=== PATIENT | female | born 1960 | race Caucasian/White ===

== ENCOUNTER 2021-06-22 12:57 | Emergency (ER) | payer SELFPAY ==
--- NOTE | 2021-06-22 13:10 | ED Physician Documentation ---
PD HPI BACK PAIN - Stated complaint Stated Complaint: BACK PX - Chief complaint Chief Complaint: Abd Pain - History obtained from History obtained from: Patient - History of Present Illness Timing - onset: How many days ago (4) Timing - duration: Days (4) Timing - details: Gradual onset, Still present (more consistent and severe the past day.) Location: Lower, Left Quality: Pain, Aching Associated symptoms: No: Fever, Weakness, Numbness, Hematuria Improves with: Rest Worsened by: Movement, Palpation (left lower abd) Contributing factors: No: Lifting, Twisting, Trauma Similar symptoms before: Has not had sx before Recently seen: Not recently seen Review of Systems Constitutional: denies: Fever, Chills Nose: denies: Rhinorrhea / runny nose, Congestion Throat: denies: Sore throat Cardiac: denies: Chest pain / pressure, Palpitations Respiratory: denies: Dyspnea, Cough GI: reports: Abdominal Pain, Nausea. denies: Vomiting, Diarrhea : denies: Dysuria, Frequency Skin: denies: Rash Neurologic: denies: Focal weakness, Numbness, Near syncope PD PAST MEDICAL HISTORY - Past Medical History Cardiovascular: None Respiratory: None Endocrine/Autoimmune: None GI: None - Present Medications Home Medications: Ambulatory Orders Medication Instructions Recorded Confirmed Naproxen 250 mg PO TID 7 Days #20 tablet 06/22/21 Ondansetron Odt [Zofran] 4 mg TL Q6H PRN #10 tablet 06/22/21 Oxycodone HCl/Acetaminophen 1 each PO Q6H PRN #14 tablet 06/22/21 [Percocet 5-325 mg Tablet] cephALEXin [Keflex] 500 mg PO TID 5 Days #15 cap 06/22/21 metroNIDAZOLE [Flagyl] 250 mg PO TID 5 Days #15 tablet 06/22/21 - Allergies Allergies/Adverse Reactions: Allergies Allergy/AdvReac Type Severity Reaction Status Date / Time codeine Allergy Respiratory Verified 06/22/21 13:02 erythromycin base Allergy Headache Verified 06/22/21 13:02 epinephrine AdvReac Anxiety Verified 06/22/21 13:02 PD ED PE NORMAL - Vitals Vital signs reviewed: Yes - General General: Alert and oriented X 3, Well developed/nourished, Other (appears moderately uncomfortable but not having guarded ROM of the trunk. ) - Neck Neck: Supple, no meningeal sign, No adenopathy - Cardiac Cardiac: RRR, No murmur - Respiratory Respiratory: Clear bilaterally - Abdomen Abdomen: Normal bowel sounds, Soft, Non distended, No organomegaly, Other (tender left lower abd with mild local guarding but no percussion nor rebounds tenderness. No noted hernia, rash, nor skin process. ) Results - Vitals Vitals: Vital Signs - 24 hr 06/22/21 06/22/21 06/22/21 13:02 13:20 16:13 Temperature 36.6 C 36.7 C Heart Rate 76 71 Respiratory 19 20 16 Rate Blood Pressure 169/90 H 168/80 H O2 Saturation 99 97 Oxygen O2 Source Room air - Labs Labs: Laboratory Tests 06/22/21 06/22/21 06/22/21 13:45 13:45 13:45 WBC 15.0 H RBC 5.65 H Hgb 17.0 H Hct 50.2 H MCV 88.8 MCH 30.1 MCHC 33.9 RDW 13.3 Plt Count 245 MPV 12.3 H Neut # (Auto) 10.4 H Lymph # (Auto) 3.3 [place] # (Auto) 0.9 Eos # (Auto) 0.2 Baso # (Auto) 0.1 Absolute Nucleated RBC 0.00 Nucleated RBC % 0.0 Sodium 139 Potassium 3.7 Chloride 106 Carbon Dioxide 19 L Anion Gap 14.0 H BUN 10 Creatinine 0.7 Estimated GFR (MDRD) 85 L Glucose 96 Calcium 9.1 Total Bilirubin 1.2 H AST 29 ALT 19 Alkaline Phosphatase 58 Total Protein 7.2 Albumin 4.0 Globulin 3.2 Albumin/Globulin Ratio 1.3 Lipase 27 Urine Color DARK YELLOW Urine Clarity CLEAR Urine pH 5.5 Ur Specific [place] >=1.030 H Urine Protein NEGATIVE Urine Glucose (UA) NEGATIVE Urine Ketones TRACE Urine Occult Blood NEGATIVE Urine Nitrite NEGATIVE Urine Bilirubin NEGATIVE Urine Urobilinogen 0.2 (NORMAL) Ur Leukocyte Esterase NEGATIVE Ur Microscopic Review NOT INDICATED Urine Culture Comments NOT INDICATED PD MEDICAL DECISION MAKING - ED course Complexity details: reviewed results (acute diverticulitis without perforation nor abscess. ), re-evaluated patient (improved with meds in ER, but still hurting just a little. Nonperitoneal abd exam still. ), considered differential, d/w patient Departure - Departure Disposition: 01 Home, Self Care Clinical Impression: Sigmoid diverticulitis Low back pain Qualifiers: Chronicity: acute Back pain laterality: unspecified Sciatica presence: without sciatica Qualified Code(s): M54.50 - Low back pain, unspecified Condition: Stable Record reviewed to determine appropriate education?: Yes Instructions: ED Diverticulitis Prescriptions: metroNIDAZOLE [Flagyl] 250 mg PO TID 5 Days #15 tablet cephALEXin [Keflex] 500 mg PO TID 5 Days #15 cap Naproxen 250 mg PO TID 7 Days #20 tablet Oxycodone HCl/Acetaminophen [Percocet 5-325 mg Tablet] 1 each PO Q6H PRN #14 tablet PRN Reason: pain Ondansetron Odt [Zofran] 4 mg TL Q6H PRN #10 tablet PRN Reason: Nausea / Vomiting Comments: CT scan shows acute sigmoid diverticulitis without any signs of abscess or perforation. Your white count is elevated suggesting an infectious as well as inflammatory process of it. Stay well-hydrated. Regular diet is okay. Use naproxen anti-inflammatory 3 times a day with food for the next 5 to 7 days for inflammation. Also cephalexin and metronidazole antibiotics 3 times daily for the next 5 days. Add Tylenol every 4-6 hours if needed for pain or Percocet if needed for worse pain. The intention of this would be short-term. Ondansetron if needed for nausea. I transmitted your [facility] in [place] as this is the only one that will be open at this time toward the [facility]. Recheck if not improving well over the next 3 to 5 days and resolved in that timeframe. Return if worsening. I am prescribing a short course of narcotic pain medication for you. These are potentially dangerous and addictive medications that should be used carefully. These medications may constipate you. Take an [id number] stool softener such as docusate twice daily with plenty of water while taking these medications. If you go 24 hours without a bowel movement, take [id number] MiraLAX, per package instructions. Do not drink or drive while taking these medications. If you received narcotic or sedating medications while in the emergency department do not drive for 24 hours. Store this medication in a safe, secure place and out of reach of children. It is a violation of federal law to give or sell this medication to another person or to use in a manner other than prescribed. The ED will not refill narcotic prescriptions, including prescriptions lost or stolen. You can dispose of unwanted medications at the [facility]'s office or at several pharmacies such as [facility]. Discharge Date/Time: 06/22/21 16:18
[2021-06-22] MEDS ORDERED: ONDANSETRON 4 MG/2 ML VIAL IVP STA (13:33)
[2021-06-22] MEDS ORDERED: KETOROLAC 15 MG/ML VIAL IVP STA (13:33)
[2021-06-22] MEDS ORDERED: HYDROmorphone 0.5 MG/0.5 ML SYRINGE IVP STA (13:34)
[2021-06-22] MEDS ORDERED: iohexoL-300 100 ML VIAL ONE (13:45)
[2021-06-22 13:58] LABS: GLUCOSE, URINE (UA) NEGATIVE (NEGATIVE); KETONES,URINE (UA) TRACE mg/dL (NEGATIVE); LEUKOCYTE ESTERASE, URINE NEGATIVE (NEGATIVE); NITRITE,URINE NEGATIVE (NEGATIVE); OCCULT BLOOD,URINE NEGATIVE (NEGATIVE); PH,URINE 5.5 PH (5.0-7.5); PROTEIN,URINE NEGATIVE (NEGATIVE); UROBILINOGEN,URINE 0.2 (NORMAL) E.U./dL (NORMAL)
[2021-06-22 13:59] LABS: BASOPHILS # (AUTO) 0.1 10^3/uL (0.0-0.1); BASOPHILS % (AUTO) 0.4 %; EOSINOPHILS # (AUTO) 0.2 10^3/uL (0.0-0.7); EOSINOPHILS % (AUTO) 1.3 %; HCT - HEMATOCRIT 50.2 % (37.0-47.0); LYMPHOCYTES # (AUTO) 3.3 10^3/uL (1.5-3.5); MEAN CORPUSCULAR HEMOGLOBIN 30.1 pg (27.0-31.0); MEAN CORPUSCULAR HGB CONC 33.9 g/dL (32.0-36.0); MEAN CORPUSCULAR VOLUME 88.8 fL (81.0-99.0); MEAN PLATELET VOLUME 12.3 fL (7.9-10.8); MONOCYTES # (AUTO) 0.9 10^3/uL (0.0-1.0); MONOCYTES % (AUTO) 6.1 %; NEUTROPHILS # (AUTO) 10.4 10^3/uL (1.5-6.6); NEUTROPHILS % (AUTO) 69.8 %; PLT - PLATELET COUNT 245 10^3/uL (130-450); RED BLOOD COUNT 5.65 10^6/uL (4.20-5.40); RED CELL DISTRIBUTION WIDTH 13.3 % (12.0-15.0)
[2021-06-22 14:16] LABS: CLARITY,URINE CLEAR (CLEAR)
[2021-06-22 14:21] LABS: ALBUMIN/GLOBULIN RATIO 1.3 (1.0-2.2); BILIRUBIN,TOTAL 1.2 mg/dL (0.2-1.0); BILIRUBIN,URINE NEGATIVE (NEGATIVE); CALCIUM 9.1 mg/dL (8.5-10.3); CREATININE 0.7 mg/dL (0.4-1.0); ICTOTEST,URINE NEGATIVE; TOTAL PROTEIN 7.2 g/dL (6.7-8.2)
[2021-06-22 14:22] LABS: POTASSIUM 3.7 mmol/L (3.5-5.0)
[2021-06-22] MEDS ORDERED: iohexoL-300 100 ML VIAL IVP ONE (15:03)
--- NOTE | 2021-06-22 15:40 | CT Report ---
PROCEDURE: Abdomen/Pelvis W INDICATIONS: Abdominal pain, acute, nonlocalized CONTRAST: IV CONTRAST: Isovue 300 ml: 100 PO CONTRAST: *NO PO CONTRAST TECHNIQUE: After the administration of IV contrast, 5 mm thick sections acquired from the diaphragms to the symp hysis. 5 mm thick coronal and sagittal reformats were acquired. For radiation dose reduction, the f ollowing was used: automated exposure control, adjustment of mA and/or kV according to patient size. COMPARISON: None. FINDINGS: Image quality: Excellent. ABDOMEN: Lung bases: Lung bases are clear. Heart size is normal. Solid organs: Diffuse fatty liver infiltration can be seen. The liver demonstrates normal size and echogenicity. No liver lesions are detected. The spleen demonstrates normal size and demonstrates no suspicious lesions. Gallbladder wall does not appear thickened. Biliary system is non dilated. Pancreas enhances normally. There is a left adrenal nodule seen, as on series 3 image 19 that measures up to 2 cm. The internal d ensity is 30 Hounsfield units on this postcontrast study. The right adrenal gland demonstrates genera lized thickening, yet without a focal nodule. Kidneys demonstrate normal size and enhancement, without hydronephrosis. No obstructing bilateral michelle al stones are seen, which measure up to 7 mm on the left and up to 3 mm on the right. Peritoneum and bowel: Moderate focal wall thickening can be seen involving the distal descending colo n and the sigmoid colon, minimal surrounding inflammatory change. This is best seen on series 6 image 35. No findings of perforation or abscess can be seen. No significant free fluid can be seen. The cecum is noted to be high riding. No additional colonic abnormality is seen. A normal appendix ca n be seen. No dilated loops of small bowel are seen. Nodes and vessels: No retroperitoneal or mesenteric adenopathy by size criteria. Aorta and inferior vena cava are normal in size. Miscellaneous: There is a minimal fat-containing periumbilical hernia. PELVIS: Genitourinary: Bladder wall thickness is normal. The uterus demonstrates an unremarkable appearance for age. No adnexal masses are seen. Miscellaneous: No inguinal hernias or adenopathy. Bones: No suspicious bony lesions. No vertebral body compression fractures. There is focal L5-S1 d egenerative change seen. Milder degenerative changes are seen elsewhere. IMPRESSION: Mild diverticulitis seen involving the distal descending colon and the sigmoid colon, wi thout findings of perforation or abscess. Normal appendix. A left adrenal nodule is incidentally noted. On this noncontrast study, this cannot be defined as a b enign lesion. When clinically appropriate, please consider a dedicated adrenal protocol MRI for furth er evaluation (assuming that there is no contraindication). Incidental note is made of: Fatty liver infiltration Nonobstructing bilateral renal stones High riding cecum Minimal fat-containing periumbilical hernia Focal L5-S1 degenerative change Reviewed by: Stefan Lozano MD on 06/22/2021 2:39 PM [place] Approved by: Stefan Lozano MD on 06/22/2021 2:39 PM [facility] Station ID: [id number]
[2021-06-22] MEDS ORDERED: cephALEXin 250 MG CAPSULE PO STA (16:06)
[2021-06-22] MEDS ORDERED: metroNIDAZOLE 250 MG TABLET PO STA (16:06)
[2021-06-22 16:14] VITALS: BP 168/80
== END 2021-06-22 16:18 | disposition home or self-care (01) ==
LOC: ED 12:57
DX: K57.32 Diverticulitis of large intestine without perforation or abscess without bleeding (principal); M54.50 Low back pain, unspecified
CPT/HCPCS: 36415; 74177; 80053; 81003; 83690; 85025; 96374; 99284; A9270; Q9967; 81001; 87086

== ENCOUNTER 2022-06-16 13:05 | Outpatient (CLI) | payer SELFPAY ==
[2022-06-16 20:20] LABS: BASOPHILS # (AUTO) 0.1 10^3/uL (0.0-0.1); BASOPHILS % (AUTO) 0.7 %; EOSINOPHILS # (AUTO) 0.2 10^3/uL (0.0-0.7); EOSINOPHILS % (AUTO) 1.6 %; HCT - HEMATOCRIT 45.4 % (37.0-47.0); HGB - HEMOGLOBIN 14.8 g/dL (12.0-16.0); LYMPHOCYTES # (AUTO) 2.6 10^3/uL (1.5-3.5); LYMPHOCYTES % (AUTO) 22.3 %; MEAN CORPUSCULAR HEMOGLOBIN 29.5 pg (27.0-31.0); MEAN CORPUSCULAR HGB CONC 32.6 g/dL (32.0-36.0); MEAN CORPUSCULAR VOLUME 90.6 fL (81.0-99.0); MEAN PLATELET VOLUME 12.8 fL (7.9-10.8); MONOCYTES # (AUTO) 0.6 10^3/uL (0.0-1.0); MONOCYTES % (AUTO) 5.3 %; NEUTROPHILS # (AUTO) 8.2 10^3/uL (1.5-6.6); NEUTROPHILS % (AUTO) 69.8 %; PLT - PLATELET COUNT 269 10^3/uL (130-450); RED BLOOD COUNT 5.01 10^6/uL (4.20-5.40); RED CELL DISTRIBUTION WIDTH 13.3 % (12.0-15.0); WHITE BLOOD COUNT 11.8 x10^3/uL (4.8-10.8)
[2022-06-16 20:24] LABS: ALBUMIN/GLOBULIN RATIO 1.3 (1.0-2.2); BILIRUBIN,TOTAL 0.6 mg/dL (0.2-1.0); CALCIUM 9.2 mg/dL (8.5-10.3); CREATININE 0.7 mg/dL (0.4-1.0); POTASSIUM 4.9 mmol/L (3.5-5.0); TOTAL PROTEIN 7.2 g/dL (6.7-8.2)
[2022-06-16 20:47] LABS: THYROID STIMULATING HORMONE 1.08 uIU/mL (0.34-5.60)
[2022-06-17 12:26] LABS: ESTIMATED AVERAGE GLUCOSE 117 mg/dL (70-100); HEMOGLOBIN A1c% 5.7 % (4.27-6.07)
== END 2022-06-16 13:06 | disposition home or self-care (01) ==
LOC: LAB.S 13:05
PROVIDERS: ATTEND Registered Nurse
DX: R42 Dizziness and giddiness (principal); R06.02 Shortness of breath
CPT/HCPCS: 36415; 80053; 83036; 84443; 85025

== ENCOUNTER 2022-07-12 09:32 | Emergency (ER) | payer SELFPAY ==
[2022-07-12 10:05] LABS: BASOPHILS % (AUTO) 0.4 %; EOSINOPHILS % (AUTO) 0.7 %; HCT - HEMATOCRIT 50.4 % (37.0-47.0); HGB - HEMOGLOBIN 16.7 g/dL (12.0-16.0); LYMPHOCYTES % (AUTO) 21.2 %; MEAN CORPUSCULAR HEMOGLOBIN 29.2 pg (27.0-31.0); MEAN CORPUSCULAR HGB CONC 33.1 g/dL (32.0-36.0); MEAN CORPUSCULAR VOLUME 88.3 fL (81.0-99.0); MEAN PLATELET VOLUME 11.4 fL (7.9-10.8); MONOCYTES % (AUTO) 6.7 %; NEUTROPHILS % (AUTO) 70.6 %; PLT - PLATELET COUNT 224 10^3/uL (130-450); RED BLOOD COUNT 5.71 10^6/uL (4.20-5.40); WHITE BLOOD COUNT 11.2 x10^3/uL (4.8-10.8)
[2022-07-12 10:08] LABS: ABNORMAL LYMPHS % (MANUAL) 0 %
[2022-07-12 10:22] LABS: ALBUMIN/GLOBULIN RATIO 1.4 (1.0-2.2); BAND NEUTROPHILS % (MANUAL) 1 %; BILIRUBIN,TOTAL 0.8 mg/dL (0.2-1.0); CALCIUM 9.3 mg/dL (8.5-10.3); CREATININE 0.7 mg/dL (0.4-1.0); DIFFERENTIAL COMMENT MANUAL DIFFERENTIAL; EOSINOPHILS # (MANUAL) 0.1 10^3/uL (0-0.7); LYMPHOCYTES # (MANUAL) 2.2 10^3/uL (1.5-3.5); LYMPHOCYTES % (MANUAL) 20 %; MONOCYTES # (MANUAL) 0.8 10^3/uL (0.0-1.0); NEUTROPHILS # (MANUAL) 8.1 10^3/uL (1.5-6.6); PLATELET ESTIMATE, MANUAL NORMAL (130-450,000) (NORMAL); PLATELET MORPHOLOGY NORMAL APPEARANCE (NORMAL); POTASSIUM 3.4 mmol/L (3.5-5.0); RBC MORPHOLOGY (MULTIPLE) NORMAL APPEARANCE (NORMAL); TOTAL PROTEIN 6.9 g/dL (6.7-8.2); WBC MORPHOLOGY (MULTIPLE) 1+ SMUDGE CELLS (NORMAL)
--- NOTE | 2022-07-12 10:24 | ED Physician Documentation ---
PD HPI FOCAL NEURO - Stated complaint Stated Complaint: TINGLING/NUMBNESS ON FACE - Chief complaint Chief Complaint: Neuro - History obtained from History obtained from: Patient - History of Present Illness Timing - onset: How many hours ago (24), Yesterday Timing - duration: Hours (24) Timing - details: Abrupt onset, Other (improved today) Severity of deficit: Severe Weakness: No: Face, Arm, Hand, Leg, Foot, Right, Left, Other Numbness: No: Face, Arm, Hand, Leg, Foot, Right, Left, Other Associated symptoms: No: Headache, Nausea / vomiting, Seizure, Syncope, Fall, Head injury, Chest pain, Neck pain, Back pain, Fever Contributing factors: negative: Anticoagulated, Vascular dz, Atrial fibrillation, Prosthetic heart valve Baseline status: positive: A&OX3, ambulatory, indep Similar symptoms before: Has not had sx before Recently seen: Not recently seen - Additional information Additional information: 62-year-old Leonor Lo has a prior history of colorectal cancer status postsurgery 12 years ago. She reports that yesterday in the morning she went to call her dog and was unable to get any words to come out. She had gibberish. She states that she tried and tried throughout the day and later in the afternoon was able to talk fairly normally with effort. Today she is talking with effort. Her friend has encouraged her to come to the emergency department today. The patient states that yesterday when this occurred she just thought that this would resolve and when her friend discovered that she had this persistence of difficulty speaking she encouraged her to come to the emergency department. The patient feels there may be some weakness to her left leg as well but this is subtle. She is afebrile and has no other specific complaints. Review of Systems Constitutional: denies: Fever, Sweats Eyes: denies: Photophobia Ears: denies: Ear pain Nose: denies: Congestion Throat: denies: Sore throat Cardiac: denies: Chest pain / pressure, Palpitations Respiratory: denies: Dyspnea, Cough GI: denies: Abdominal Pain, Nausea, Vomiting, Constipation, Diarrhea : denies: Dysuria, Frequency Skin: denies: Rash Musculoskeletal: denies: Neck pain, Back pain, Extremity pain PD PAST MEDICAL HISTORY - Past Medical History Cardiovascular: None Respiratory: None Endocrine/Autoimmune: None GI: None - Present Medications Home Medications: Ambulatory Orders Medication Instructions Recorded Confirmed Naproxen 250 mg PO TID 7 Days #20 tablet 06/22/21 Ondansetron Odt [Zofran] 4 mg TL Q6H PRN #10 tablet 06/22/21 Oxycodone HCl/Acetaminophen 1 each PO Q6H PRN #14 tablet 06/22/21 [Percocet 5-325 mg Tablet] cephALEXin [Keflex] 500 mg PO TID 5 Days #15 cap 06/22/21 metroNIDAZOLE [Flagyl] 250 mg PO TID 5 Days #15 tablet 06/22/21 - Allergies Allergies/Adverse Reactions: Allergies Allergy/AdvReac Type Severity Reaction Status Date / Time codeine Allergy Respiratory Verified 07/12/22 09:52 erythromycin base Allergy Headache Verified 07/12/22 09:52 epinephrine AdvReac Anxiety Verified 07/12/22 09:52 PD ED PE NORMAL - Vitals Vital signs reviewed: Yes - General General: Alert and oriented X 3, No acute distress, Well developed/nourished, Other (speech is deliberate and metered normal content no dysarthria .) - HEENT HEENT: Atraumatic, PERRL, EOMI - Neck Neck: Supple, no meningeal sign, No bony TTP - Cardiac Cardiac: RRR, No murmur - Respiratory Respiratory: No respiratory distress, Clear bilaterally - Abdomen Abdomen: Normal bowel sounds, Soft, Non tender, Non distended, No organomegaly - Back Back: No CVA TTP, No spinal TTP - Derm Derm: Normal color, Warm and dry, No rash - Extremities Extremities: No deformity, No edema - Neuro Neuro: Alert and oriented X 3, gastroenterology nurse 2-12 intact, No motor deficit, No sensory deficit, Normal speech Eye Opening: Spontaneous Motor: Obeys Commands Verbal: Oriented GCS Score: 15 - Psych Psych: Normal mood, Normal affect NIHSS - Time Time: 10:15 - Level of Consciousness Level of consciousness: (0) Alert, Keenly responsive LOC Questions: (0) Answers both Q's correct LOC Commands: (0) Performs both correctly - Gaze Best Gaze: (0) Normal - Visual Visual: (0) No loss - Facial Palsy Facial Palsy: (0) Normal, symmetrical movement - Motor Arms (both separate) Motor Arm (right): (0) No drift Motor Arm (left): (0) No drift - Motor Legs (both separate) Motor Leg (right): (0) No drift Motor Leg (left): (0) No drift - Limb Ataxia Limb Ataxia: (0) Absent - Sensory Sensory: (0) Normal - Best Language Best Language: (0) No aphasia (speaks deliberatly) - Dysarthria Dysarthria: (0) Normal - Extinction and Inattention (formally neg Extinction and inattention: (0) No abnormality - Total Score/Results Total Score/Result: 0 Results - Vitals Vitals: Vital Signs - 24 hr 07/12/22 07/12/22 09:45 12:14 Temperature 35.7 C L Heart Rate 80 57 L Respiratory 14 12 Rate Blood Pressure 169/134 H 161/84 H O2 Saturation 98 97 Oxygen O2 Source Room air - EKG (time done) 1038 Rate: Rate (enter#) (59) Rhythm: NSR Ischemia: Normal ST segments Compare to prior EKG: Old EKG unavailable Computer interpretation: Agree with computer - Labs Labs: Laboratory Tests 07/12/22 07/12/22 07/12/22 09:58 10:01 10:01 WBC 11.2 H RBC 5.71 H Hgb 16.7 H Hct 50.4 H MCV 88.3 MCH 29.2 MCHC 33.1 RDW 13.0 Plt Count 224 MPV 11.4 H Neut # (Auto) Not Reportable Lymph # (Auto) Not Reportable [place] # (Auto) Not Reportable Eos # (Auto) Not Reportable Baso # (Auto) Not Reportable Absolute Nucleated RBC Not Reportable Total Counted 100 Band Neuts % (Manual) 1 Abnorm Lymph % (Manual) 0 Nucleated RBC % Not Reportable Neutrophils # (Manual) 8.1 H Lymphocytes # (Manual) 2.2 Monocytes # (Manual) 0.8 Eosinophils # (Manual) 0.1 Basophils # (Manual) 0.0 Differential Comment MANUAL DIFFERENTIAL WBC Morphology 1+ SMUDGE CELLS Platelet Estimate NORMAL (130-450,000) Platelet Morphology NORMAL APPEARANCE RBC Morph Micro Appear NORMAL APPEARANCE Sodium 140 Potassium 3.4 L Chloride 106 Carbon Dioxide 23 Anion Gap 11.0 BUN 8 Creatinine 0.7 Estimated GFR (MDRD) 85 L Glucose 114 H POC Whole Bld Glucose 120 H Calcium 9.3 Total Bilirubin 0.8 AST 20 ALT 26 Alkaline Phosphatase 56 Troponin I High Sens Total Protein 6.9 Albumin 4.0 Globulin 2.9 Albumin/Globulin Ratio 1.4 Lipase 33 07/12/22 10:01 WBC RBC Hgb Hct MCV MCH MCHC RDW Plt Count MPV Neut # (Auto) Lymph # (Auto) [place] # (Auto) Eos # (Auto) Baso # (Auto) Absolute Nucleated RBC Total Counted Band Neuts % (Manual) Abnorm Lymph % (Manual) Nucleated RBC % Neutrophils # (Manual) Lymphocytes # (Manual) Monocytes # (Manual) Eosinophils # (Manual) Basophils # (Manual) Differential Comment WBC Morphology Platelet Estimate Platelet Morphology RBC Morph Micro Appear Sodium Potassium Chloride Carbon Dioxide Anion Gap BUN Creatinine Estimated GFR (MDRD) Glucose POC Whole Bld Glucose Calcium Total Bilirubin AST ALT Alkaline Phosphatase Troponin I High Sens 31.7 H* Total Protein Albumin Globulin Albumin/Globulin Ratio Lipase - Rads (name of study) MR brain Radiology: Prelim report reviewed (see ED course), EMP read indepedently, See rad report MRA brain Radiology: Prelim report reviewed (Impression: No significant intracranial arterial abnormalities are seen.), EMP read indepedently, See rad report carotid u/s Radiology: Prelim report reviewed (Impression: No hemodynamically significant stenosis is detected arterial hypertension measured at the time of the study.), EMP read indepedently, See rad report PD Medical Decision Making - ED course Complexity details: reviewed old records, reviewed results, re-evaluated patient, considered differential, d/w patient, d/w consultant technology (Dr Gusman neurology ) Reviewed Lab Results: MR brain: Impression: No findings of acute or subacute infarction are seen. No masses or abnormal enhancement can be seen. There is a 2.7 cm focus of abnormal enhancing calvarium seen on the right superiorly. The appearance is nonspecific although differential diagnosis include bony metastatic disease. Please correlate with underlying patient history. If clinically appropriate, please consider a follow-up whole-body nuclear medicine bone scan for further evaluation. Additional findings: Remote left thalamus lacunar infarct. brain parenchymal volume loss. chronic small vessel ischemic change. Social Determinants of Health: The patient lives alone. ED course: 62-year-old carrier Leonor Patel presented to the emergency department with a history of expressive aphasia that was present yesterday and improved today but not entirely resolved. She continues to have some deliberate speech and appears to be working to make each word. She is worked up here in the emergency department with MR of the brain without evidence of acute stroke. I found this unsettling and consulted neurology and spoke with Dr. Comfort Gusman. She recommended admission of the patient to the hospital and close observation for any worsening. Worsening would indicate a requirement for lumbar puncture and potential treatment for HSV. She indicates this is less likely and more likely this is a MRI negative stroke. She indicates there is usually progression with HSV and not improvement. She was able to review the MR and did not find evidence of encephalitis. She does have prior evidence of lacunar stroke on the MR. She recommended MRA of the brain and carotid doppler of the neck as well as aspirin. I shared this information with our hospitalist Dr. Stringer and she we will place patient in observation. The patient has reservations about coming into the hospital and does not want to be hospitalized. We were able to complete the further studies and had a normal MRA of the brain as well as a normal carotid Doppler of the neck. The patient refused hospitalization I spoke with the patient again and I will refer her to the neurologist for follow-up in or a primary in [place] to complete studies including an echocardiogram of the heart and a potential whole-body bone scan. Departure - Departure Disposition: 01 Home, Self Care Clinical Impression: Stroke-like symptoms Condition: Stable
[2022-07-12] MEDS ORDERED: GADOBUTROL 15 MMOL/15 ML VIAL ONE (10:46)
[2022-07-12] MEDS ORDERED: GADOBUTROL 15 MMOL/15 ML VIAL IVP ONE (11:35)
--- NOTE | 2022-07-12 12:03 | MRI Report ---
PROCEDURE: BRAIN W/WO INDICATIONS: expressive aphasia 24 hours ago CONTRAST: GADAVIST 11.1 ML TECHNIQUE: Noncontrast axial T1 spin echo, axial T2 fast spin echo, sagittal and axial FLAIR, coronal T2 fast sp in echo, axial gradient echo, axial diffusion and ADC through the brain. After the administration of contrast, axial and coronal T1 spin echo with fat saturation through the brain. COMPARISON: None. FINDINGS: Image quality: Excellent. CSF spaces: Basal cisterns are patent. No extra-axial fluid collections. Ventricles are normal in size and shape. Brain: No midline shift. No intracranial bleeds or masses. No abnormal intracranial enhancement. There is cerebral volume loss for age. There is periventricular white matter chronic small vessel is chemic change. The brainstem appears normal. Diffusion-weighted images demonstrate no acute ischemi c insults. There is a lacunar infarct seen within the left thalamus, as on series 15 image 78 and on series 12 image 13. Normal intravascular flow voids are present. Skull and face: Within the right superior calvarium, there is focal abnormal signal with increased T 2-weighted signal, as on series 9 images 13 measuring up to 2.7 cm, as on series 14 image 59 and on s eries 16 image 73. Generalized abnormal enhancement can be seen at this site. Calvarial marrow is oth erwise normal in signal. Orbits appear normal. Sinuses: Sinuses and mastoids appear clear. IMPRESSION: No findings of acute or subacute infarction are seen. No masses or abnormal enhancement can be seen. There is a 2.7 cm focus of abnormal enhancing calvarium seen on the right superiorly. The appearance is nonspecific, although differential diagnosis includes bony metastatic disease. Please correlate wi th underlying patient history. If clinically appropriate, please consider a follow-up whole body nucl ear medicine bone scan for further evaluation. Additional findings: Remote left thalamus lacunar infarct Brain parenchymal volume loss Chronic small vessel ischemic change Reviewed by: Stefan Lozano MD on 07/12/2022 11:01 AM [facility] Approved by: Stefan Lozano MD on 07/12/2022 11:01 AM [facility] Station ID: [id number]
[2022-07-12] MEDS ORDERED: ASPIRIN CHEW 81 MG TABLET PO STA (13:27)
[2022-07-12] MEDS ORDERED: ACETAMINOPHEN 325 MG TABLET PO PRN (14:14)
[2022-07-12] MEDS ORDERED: ONDANSETRON 4 MG/2 ML VIAL IVP PRN (14:14)
[2022-07-12] MEDS ORDERED: SODIUM CHLORIDE FLUSH 0.9% 10 ML SYRINGE IVP PRN (14:14)
--- NOTE | 2022-07-12 14:23 | HISTORY & PHYSICAL EXAMINATION ---
Chief Complaint - Chief Complaint Chief Complaint: Word-finding trouble History of Present Illness - Admitted From Admitted From:: ED - History Obtained From Records Reviewed: [facility] History obtained from: ER provider and the patient - History of Present Illness HPI Comment/Other: This is a 62-year-old female with a history of colorectal cancer that was treated in 2009. She otherwise has no significant past medical history and lives alone. Yesterday she started to call her dog and could not articulate any words. Several hours later, yesterday afternoon, the symptoms got better. Today she presented to the emergency room with continued difficulty speaking but some improvement from yesterday morning. She had to articulate each word separtely with paiuses between words. 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 A Telestroke consult was done with our ED provider. The Neurologist said this could be herpes encephalitis and symptoms would be getting worse progressively, not better. The Neurologist recommended the patient be placed in Observation and have neurochecks done and also further evaluation in the form of brain MRA and carotid Dopplers. We have no Echo service available either currently. Patient was mildly hypertensive with systolic BPs in the 160s, which the Neurologist said not to treat, and allow permissive hypertension for 48 hours. The ED provider reached out to me on the Hospitalist team and we discussed how to treat this patient going forward. She will be placed inOobservation and the work-up will be ordered as described above. History - Past Medical History Cardiovascular: reports: None Respiratory: reports: None Endocrine/Autoimmune: reports: None GI: reports: Other (Hx colon CA) Musculoskeletal: reports: None - Past Surgical History General: reports: Other (colon surgery) - Family & Social History Living arrangement: At home Living Situation: Alone Meds/Allgy - Home Medications Home Medications: Ambulatory Orders Medication Instructions Recorded Confirmed Naproxen 250 mg PO TID 7 Days #20 tablet 06/22/21 Ondansetron Odt [Zofran] 4 mg TL Q6H PRN #10 tablet 06/22/21 Oxycodone HCl/Acetaminophen 1 each PO Q6H PRN #14 tablet 06/22/21 [Percocet 5-325 mg Tablet] cephALEXin [Keflex] 500 mg PO TID 5 Days #15 cap 06/22/21 metroNIDAZOLE [Flagyl] 250 mg PO TID 5 Days #15 tablet 06/22/21 - Allergies Allergies/Adverse Reactions: Allergies Allergy/AdvReac Type Severity Reaction Status Date / Time codeine Allergy Respiratory Verified 07/12/22 09:52 erythromycin base Allergy Headache Verified 07/12/22 09:52 epinephrine AdvReac Anxiety Verified 07/12/22 09:52 Review of Systems - Constitutional Constitutional: reports: Weakness - Neurological Neurological: reports: Slurred speech - All Other Systems All Other Systems: reports: Reviewed and negative Exam - Vital Signs Vital Signs: Vital Signs x48h Temp Pulse Resp BP Pulse Ox 07/12/22 12:14 57 L 12 161/84 H 97 07/12/22 09:45 35.7 C L 80 14 169/134 H 98 Conclusion/Plan - Lab Results Fish Bones: 07/12/22 10:01 07/12/22 10:01 - Diagnostic Imaging Results Diagnostic Imaging Results: positive: Final report reviewed
--- NOTE | 2022-07-12 14:57 | Ultrasound Report ---
PROCEDURE: Carotid Doppler Complete INDICATIONS: expressive aphasia TECHNIQUE: Color and pulse Doppler interrogation was performed of both carotid systems, with image documentation and velocity measurements. COMPARISON: Correlation is made with the accompanying brain MRI examination, 07/12/2022. FINDINGS: Right side: Brachial blood pressure: 184/107 mm Hg. Common carotid artery peak systolic velocity: 50 cm/sec. Internal carotid artery peak systolic velocity: 88 cm/sec. Internal carotid artery end diastolic velocity: 26 cm/sec. External carotid artery peak systolic velocity: 73 cm/sec. ICA/CCA peak systolic ratio: 1.8 Verdugo scale imaging description: Moderate atherosclerotic change is seen. Percent internal carotid artery stenosis: Less than 50% by velocity criteria. Vertebral artery: Flow direction is antegrade. Left side: Brachial blood pressure: 186/86 mm Hg. Common carotid artery peak systolic velocity: 62 cm/sec. Internal carotid artery peak systolic velocity: 63 cm/sec. Internal carotid artery end diastolic velocity: 20 cm/sec. External carotid artery peak systolic velocity: 82 cm/sec. ICA/CCA peak systolic ratio: 1 Verdugo scale imaging description: Moderate atherosclerotic change can be seen. Percent internal carotid artery stenosis: Less than 50% by velocity criteria. Vertebral artery: Flow direction is antegrade. This is a technically difficult scan, secondary to the patient's short neck and tortuous vessels. IMPRESSION: No hemodynamically significant stenosis is detected. Arterial hypertension measured at the time of this study. Note: Concordant preliminary findings given by the rock dust sprayer upon the completion of the examination to Dr. Goodson. The estimate of stenosis included in the report of the imaging study was calculated using the NASCET method Reviewed by: Stefan Lozano MD on 07/12/2022 1:56 PM [facility] Approved by: Stefan Lozano MD on 07/12/2022 1:56 PM [facility] Station ID: [id number]
[2022-07-12] MEDS ORDERED: SODIUM CHLORIDE FLUSH 0.9% 10 ML SYRINGE IVP SCH (17:00)
--- NOTE | 2022-07-12 17:09 | MRI Report ---
PROCEDURE: ANGIO HEAD WO INDICATIONS: expressive aphasia TECHNIQUE: Noncontrast axial 3-D [id number] MR angiogram, with 3-dimensional maximum intensity projection (M IP) reformats of the internal carotid arteries and posterior circulation then performed. COMPARISON: Correlation is made with the accompanying brain MRI and carotid ultrasound examinations, 07/12/2022. FINDINGS: Image quality: Excellent. Anterior circulation: Intracranial internal carotid arteries demonstrate normal size and intralumina l flow signal. The flow within the paired anterior cerebral arteries is normal and symmetric. The f low within the middle cerebral arteries is normal and symmetric. The anterior communicating artery i s seen. No stenoses, occlusions, or aneurysms. Posterior circulation: Visualized portions of the vertebral arteries demonstrate normal caliber, and join to form a normal appearing basilar artery. The flow within the posterior cerebral arteries is normal and symmetric. No stenoses, occlusions, or aneurysms. The included venous quiller operator images are within normal limits. IMPRESSION: No significant intracranial arterial abnormalities are seen. Reviewed by: Stefan Lozano MD on 07/12/2022 4:08 PM [facility] Approved by: Stefan Lozano MD on 07/12/2022 4:08 PM [facility] Station ID: [id number]
[2022-07-12 18:53] VITALS: BP 161/105
[2022-07-13] MEDS ORDERED: ASPIRIN EC 81 MG TABLET PO SCH (09:00)
== END 2022-07-12 19:01 | disposition home or self-care (01) ==
LOC: ED 09:32 → UNDOADMOB 14:14 → MS2 14:14 → ED 19:01
DX: R29.90 Unspecified symptoms and signs involving the nervous system (principal)
CPT/HCPCS: 36415; 70544; 70553; 80053; 83690; 84484; 85025; 93005; 93880; 99284; A9585

== ENCOUNTER 2022-07-18 10:28 | Outpatient (CLI) | payer SELFPAY ==
[2022-07-18 16:35] LABS: CHOL/HDL RATIO 3.9 (<4.4); CHOLESTEROL 139 mg/dL; HDL CHOLESTEROL 36 mg/dL; LDL CHOLESTEROL,CALCULATED 87 mg/dL; LDL/HDL RATIO 2.4 (<4.4); TRIGLYCERIDES 80 mg/dL; VLDL CHOLESTEROL 16 mg/dL
[2022-07-18 21:48] LABS: ESTIMATED AVERAGE GLUCOSE 117 mg/dL (70-100); HEMOGLOBIN A1c% 5.7 % (4.27-6.07)
== END 2022-07-18 10:29 | disposition home or self-care (01) ==
LOC: LAB.S 10:28
PROVIDERS: ATTEND Emergency Medicine
DX: R42 Dizziness and giddiness (principal); R06.02 Shortness of breath; I63.9 Cerebral infarction, unspecified
CPT/HCPCS: 36415; 80061; 83036; 83721

== ENCOUNTER 2022-12-04 11:07 | Outpatient (CLI) | payer BC ==
[2022-12-04 14:25] LABS: BASOPHILS # (AUTO) 0.1 10^3/uL (0.0-0.1); BASOPHILS % (AUTO) 0.6 %; EOSINOPHILS # (AUTO) 0.2 10^3/uL (0.0-0.7); EOSINOPHILS % (AUTO) 2.3 %; HCT - HEMATOCRIT 50.6 % (37.0-47.0); HGB - HEMOGLOBIN 16.6 g/dL (12.0-16.0); LYMPHOCYTES # (AUTO) 2.5 10^3/uL (1.5-3.5); LYMPHOCYTES % (AUTO) 26.3 %; MEAN CORPUSCULAR HEMOGLOBIN 29.6 pg (27.0-31.0); MEAN CORPUSCULAR HGB CONC 32.8 g/dL (32.0-36.0); MEAN CORPUSCULAR VOLUME 90.2 fL (81.0-99.0); MEAN PLATELET VOLUME 12.7 fL (7.9-10.8); MONOCYTES # (AUTO) 0.6 10^3/uL (0.0-1.0); MONOCYTES % (AUTO) 5.9 %; NEUTROPHILS # (AUTO) 6.1 10^3/uL (1.5-6.6); NEUTROPHILS % (AUTO) 64.6 %; PLT - PLATELET COUNT 240 10^3/uL (130-450); RED BLOOD COUNT 5.61 10^6/uL (4.20-5.40); RED CELL DISTRIBUTION WIDTH 13.1 % (12.0-15.0); WHITE BLOOD COUNT 9.5 x10^3/uL (4.8-10.8)
[2022-12-04 14:51] LABS: ALBUMIN/GLOBULIN RATIO 1.3 (1.0-2.2); ALKALINE PHOSPHATASE 68 IU/L (42-121); ALT ALANINE AMINOTRANSFERASE 18 IU/L (10-60); AST ASPARTATE AMINOTRANSFERASE 18 IU/L (10-42); BILIRUBIN,TOTAL 0.5 mg/dL (0.2-1.0); BUN - BLOOD UREA NITROGEN 13 mg/dL (6-20); CALCIUM 9.1 mg/dL (8.5-10.3); CARBON DIOXIDE - CO2 27 mmol/L (21-32); CHLORIDE 111 mmol/L (101-111); CREATININE 0.7 mg/dL (0.4-1.0); GFR - MDRD 85 (>89); GLUCOSE 111 mg/dL (70-100); SODIUM 142 mmol/L (135-145); TOTAL PROTEIN 7.2 g/dL (6.7-8.2)
[2022-12-04 14:52] LABS: CRP - C-REACTIVE PROTEIN < 1.0 mg/dL (0-1.0); THYROID STIMULATING HORMONE 1.21 uIU/mL (0.34-5.60)
[2022-12-08 17:08] LABS: A/G RATIO 1.2 (0.7-1.7); ALBUMIN 3.6 g/dL (2.9-4.4); ALPHA-1-GLOBULIN 0.2 g/dL (0.0-0.4); ALPHA-2-GLOBULIN 0.9 g/dL (0.4-1.0); BETA GLOBULIN 1.1 g/dL (0.7-1.3); GAMMA GLOBULIN 0.8 g/dL (0.4-1.8); IMMUNOGLOBULIN A (IGA) 205 mg/dL (87-352); IMMUNOGLOBULIN G (IGG) 775 mg/dL (586-1602); IMMUNOGLOBULIN M (IGM) 133 mg/dL (26-217); PROTEIN TOTAL 6.6 g/dL (6.0-8.5)
== END 2022-12-04 11:08 | disposition home or self-care (01) ==
LOC: LAB.S 11:07
PROVIDERS: ATTEND Internal Medicine
DX: I10 Essential (primary) hypertension (principal); R42 Dizziness and giddiness; R06.02 Shortness of breath; M89.9 Disorder of bone, unspecified
CPT/HCPCS: 36415; 80053; 82784; 84155; 84165; 84443; 85025; 86140; 86334; 86335

== ENCOUNTER 2022-12-08 12:59 | Emergency (ER) | payer BC ==
--- NOTE | 2022-12-08 13:06 | ED Physician Documentation ---
History of Present Illness - Stated complaint Stated Complaint: CODE STROKE - Additonal information Additional information: 62-year-old female presents the emergency department as a code stroke. She went to a local walk-in clinic and from the walk-in clinic EMS was summoned. She reports that at 1030 she began to notice some left hand weakness as well as difficulty with speech. She had a similar event in July of this year. She is not anticoagulated. For EMS she had a blood glucose of 131. EKG was sinus rhythm. Patient's initial NIHSS is 2 owing for very mild left arm drift and dysarthria Patient does have a history of hypertension as well as tobacco use. Takes a daily 81 mg aspirin as well as amlodipine. Reports her PCP recently started her on a new blood pressure medication which she has not yet filled Review of Systems Constitutional: reports: Reviewed and negative Cardiac: reports: Reviewed and negative Respiratory: reports: Reviewed and negative GI: reports: Reviewed and negative : reports: Reviewed and negative Skin: reports: Reviewed and negative Neurologic: reports: Focal weakness, Difficulty speaking. denies: Syncope, Seizure, Confused, Headache, Head injury, LOC Psychiatric: reports: Reviewed and negative Endocrine: reports: Reviewed and negative PD PAST MEDICAL HISTORY - Past Medical History Cardiovascular: None Respiratory: None Endocrine/Autoimmune: None GI: None - Past Surgical History Past Surgical History: No - Present Medications Home Medications: Ambulatory Orders Medication Instructions Recorded Confirmed Naproxen 250 mg PO TID 7 Days #20 tablet 06/22/21 Ondansetron Odt [Zofran] 4 mg TL Q6H PRN #10 tablet 06/22/21 Oxycodone HCl/Acetaminophen 1 each PO Q6H PRN #14 tablet 06/22/21 [Percocet 5-325 mg Tablet] cephALEXin [Keflex] 500 mg PO TID 5 Days #15 cap 06/22/21 metroNIDAZOLE [Flagyl] 250 mg PO TID 5 Days #15 tablet 06/22/21 - Allergies Allergies/Adverse Reactions: Allergies Allergy/AdvReac Type Severity Reaction Status Date / Time codeine Allergy Respiratory Verified 07/12/22 09:52 erythromycin base Allergy Headache Verified 07/12/22 09:52 epinephrine AdvReac Anxiety Verified 07/12/22 09:52 - Social History Does the pt smoke?: No Smoking Status: Never smoker Does the pt drink ETOH?: No Does the pt have substance abuse?: No - Immunizations Immunizations are current?: Yes PD ED PE EXPANDED - General General: Alert, No acute distress - Cardiac Cardiac: Regular Rate, Radial strong equal, Cap refill < 2 sec. No: Murmur Present - Respiratory Respiratory: Clear to ausultation gerson. No: Distress, Labored - Abdomen Abdomen: No: Tender to palpation - Extremities Extremities: Normal. No: Deformity, Tenderness - Neuro Neuro: Alert and Oriented X 3. No: Normal speech - GCS Eye Opening: Spontaneous Motor: Obeys Commands Verbal: Oriented Total: 15 Results - Vitals Vitals: Vital Signs - 24 hr 12/08/22 12/08/22 12/08/22 13:31 14:07 14:15 Temperature 36.8 C Heart Rate 77 78 71 Respiratory 20 17 Rate Blood Pressure 183/157 H 179/83 H 161/89 H O2 Saturation 100 98 98 12/08/22 12/08/22 12/08/22 14:30 14:37 15:11 Temperature Heart Rate 75 74 63 Respiratory 21 18 Rate Blood Pressure 118/98 H 118/98 H 167/74 H O2 Saturation 98 98 Oxygen O2 Source Room air - EKG (time done) 1337 EKG releavant findings:: EKG personally interpreted by author of this note. Relevant findings are: Rate: Rate (enter#) (72) Rhythm: NSR [place]: Normal QRS: Poor R wave progression, Low voltage Ischemia: Normal ST segments Compare to prior EKG: Unchanged from prior EKG Computer interpretation: Agree with computer - Labs Labs: Laboratory Tests 12/08/22 12/08/22 12/08/22 13:42 13:42 13:42 WBC 11.7 H RBC 5.41 H Hgb 16.2 H Hct 48.1 H MCV 88.9 MCH 29.9 MCHC 33.7 RDW 13.2 Plt Count 216 MPV 11.7 H Neut # (Auto) 8.6 H Lymph # (Auto) 2.2 [place] # (Auto) 0.7 Eos # (Auto) 0.2 Baso # (Auto) 0.1 Absolute Nucleated RBC 0.00 Nucleated RBC % 0.0 PT 11.2 INR 1.0 Sodium 142 Potassium 3.7 Chloride 109 Carbon Dioxide 25 Anion Gap 8.0 BUN 11 Creatinine 0.7 Estimated GFR (MDRD) 85 L Glucose 102 H Calcium 8.9 Total Bilirubin 0.7 AST 19 ALT 17 Alkaline Phosphatase 64 Total Protein 7.2 Albumin 4.1 Globulin 3.1 Albumin/Globulin Ratio 1.3 Lipase 36 - Rads (name of study) CT head stroke protocol Relevant Findings:: Final report received (No acute intracranial abnormality) CT angio head Relevant Findings:: Final report received (No areas of hemodynamically significant stenosis vascular occlusion or aneurysmal dilation within the anterior posterior circulation) CT angio neck Relevant Findings:: Prelim report reviewed cxr Relevant Findings:: Final report received (No acute cardiopulmonary process) PD Medical Decision Making - ED course Complexity details: reviewed results, re-evaluated patient, considered differential, d/w patient, d/w crm consultant (Dr. Willett tele-stroke physician) ED course: 62-year-old female who has a history of tobaccoism as well as hypertension presents the emergency department for evaluation of difficulty speaking and left hand weakness which she noticed at 1030 while she was at work. She had very similar symptoms in July of last year. An MRI at that time showed an old lacunar infarct but the MRA was negative. The angios of her neck were negative. The patient has been working with her primary care doctor for management of her hypertension. Currently on amlodipine and reportedly had a new medication ordered which she has not yet filled. Patient denies chest pain or shortness of air On presentation to the emergency department the patient had an NIHSS of 2 for very mild dysarthria and left arm weakness. She does take a daily 81 mg aspirin. I immediately notified telestroke and the patient was sent to the CT scanner with orders for CT of the head, as well as angio of the head and neck. 1310: I have personally reviewed the CT imaging of the head which shows no intracerebral hemorrhage. This was confirmed by the radiologist Dr. Price. Telestroke physician Dr. Willett was notified 1335: I spoken with the telestroke physician Dr. Willett. He does not believe that the patient is a tenecteplase candidate given the mild symptoms that appear to be resolving. He feels the patient would best be served by being admitted to [facility] for a TIA work-up which should include an echocardiogram. He recommends dual antiplatelet medications for the next 3 weeks followed by a daily 325 mg aspirin thereafter. With this recommendation I loaded the patient with 300 mg of Plavix as well as 325 mg of aspirin orally CBC, electrolytes and PT/INR were obtained. Per my interpretation she does have mildly elevated hemoglobin of 16.7 for gender. This may be secondary to tobaccoism. She has normal renal function. Patient does have modestly elevated blood pressures initially 183/157. EKG shows sinus rhythm without ischemic changes. I had initially ordered 5 mg of hydralazine but with a short bit of time and relaxation her blood pressures decreased to 167/74. Given the concern for TIA some permissive hypertension is acceptable. I have spoken with Dr. Mendoza the admitting hospitalist who agrees to bring patient in for further evaluation and management of her TIA. An echocardiogram has been ordered for tomorrow in the a.m. Departure - Departure Disposition: ED Place in Observation Clinical Impression: TIA (transient ischemic attack), Hypertensive urgency Condition: Serious NIHSS - Time Time: 13:00 - Level of Consciousness Level of consciousness: (0) Alert, Keenly responsive LOC Questions: (0) Answers both Q's correct LOC Commands: (0) Performs both correctly - Gaze Best Gaze: (0) Normal - Visual Visual: (0) No loss - Facial Palsy Facial Palsy: (0) Normal, symmetrical movement - Motor Arms (both separate) Motor Arm (right): (0) No drift Motor Arm (left): (1) Drift - Motor Legs (both separate) Motor Leg (right): (0) No drift Motor Leg (left): (0) No drift - Limb Ataxia Limb Ataxia: (0) Absent - Sensory Sensory: (0) Normal - Best Language Best Language: (0) No aphasia - Dysarthria Dysarthria: (1) Ccti-bu-hmwehvbl dysarthria - Extinction and Inattention (formally neg Extinction and inattention: (0) No abnormality - Total Score/Results Total Score/Result: 2
--- NOTE | 2022-12-08 13:19 | CT Report ---
PROCEDURE: Head W/O Stroke Protocol INDICATIONS: slurred speech, left arm weakness TECHNIQUE: Noncontrast 4.5 mm thick angled axial sections acquired from the foramen magnum to the vertex, with c oronal reformats. For radiation dose reduction, the following was used: automated exposure control, adjustment of mA and/or kV according to patient size. COMPARISON: None. FINDINGS: Image quality: Excellent. CSF spaces: Basal cisterns are patent. No extra-axial fluid collections. Ventricles are normal in size and shape. Brain: No midline shift. No intracranial masses or hemorrhage. Verdugo-white matter interface is norm al. Skull and face: Calvarium and visualized facial bones are intact, without suspicious lesions. Sinuses: Visualized sinuses and mastoids are clear. IMPRESSION: No acute intracranial abnormality. Findings were discussed with ordering provider on 12/08/2022 at 1:15 PM. This study fulfills neurological imaging criteria for inclusion or exclusion of acute stroke therapie s based on available published neurological imaging guidelines. Reviewed by: Sunday Price MD on 12/08/2022 1:17 PM PDT Approved by: Sunday Price MD on 12/08/2022 1:17 PM PDT Station ID: [id number]
[2022-12-08] MEDS: ASPIRIN CHEW 81 MG TABLET PO STA (13:47)
[2022-12-08] MEDS: CLOPIDOGREL 300 MG TABLET PO STA (13:48)
[2022-12-08 13:51] LABS: BASOPHILS # (AUTO) 0.1 10^3/uL (0.0-0.1); BASOPHILS % (AUTO) 0.4 %; EOSINOPHILS # (AUTO) 0.2 10^3/uL (0.0-0.7); EOSINOPHILS % (AUTO) 1.5 %; HCT - HEMATOCRIT 48.1 % (37.0-47.0); HGB - HEMOGLOBIN 16.2 g/dL (12.0-16.0); LYMPHOCYTES # (AUTO) 2.2 10^3/uL (1.5-3.5); LYMPHOCYTES % (AUTO) 18.4 %; MEAN CORPUSCULAR HEMOGLOBIN 29.9 pg (27.0-31.0); MEAN CORPUSCULAR HGB CONC 33.7 g/dL (32.0-36.0); MEAN CORPUSCULAR VOLUME 88.9 fL (81.0-99.0); MEAN PLATELET VOLUME 11.7 fL (7.9-10.8); MONOCYTES # (AUTO) 0.7 10^3/uL (0.0-1.0); MONOCYTES % (AUTO) 5.6 %; NEUTROPHILS # (AUTO) 8.6 10^3/uL (1.5-6.6); NEUTROPHILS % (AUTO) 73.8 %; PLT - PLATELET COUNT 216 10^3/uL (130-450); RED BLOOD COUNT 5.41 10^6/uL (4.20-5.40); RED CELL DISTRIBUTION WIDTH 13.2 % (12.0-15.0); WHITE BLOOD COUNT 11.7 x10^3/uL (4.8-10.8)
[2022-12-08 13:57] LABS: PT - PROTHROMBIN TIME 11.2 secs (9.9-12.6)
[2022-12-08 14:03] LABS: ALBUMIN 4.1 g/dL (3.2-5.5); ALBUMIN/GLOBULIN RATIO 1.3 (1.0-2.2); BILIRUBIN,TOTAL 0.7 mg/dL (0.2-1.0); CALCIUM 8.9 mg/dL (8.5-10.3); CREATININE 0.7 mg/dL (0.4-1.0); POTASSIUM 3.7 mmol/L (3.5-5.0); TOTAL PROTEIN 7.2 g/dL (6.7-8.2)
--- NOTE | 2022-12-08 14:07 | XRAY Report ---
PROCEDURE: Chest 1 View X-Ray INDICATIONS: Chest Pain TECHNIQUE: One view of the chest was acquired. COMPARISON: None. FINDINGS: Surgical changes and devices: None. Lungs and pleura: No pleural effusions or pneumothorax. Lungs are clear. Mediastinum: Mediastinal contours appear normal. Heart size is enlarged. Bones and chest wall: No suspicious bony lesions. Overlying soft tissues appear unremarkable. IMPRESSION: No acute cardiopulmonary process. Reviewed by: Jenna Olson MD on 12/08/2022 2:06 PM PDT Approved by: Jenna Olson MD on 12/08/2022 2:06 PM PDT Station ID: [id number]
--- NOTE | 2022-12-08 14:11 | CT Report ---
PROCEDURE: ANGIO HEAD W/WO INDICATIONS: L sided facial droop CONTRAST: 80ml Omnipaque 300 TECHNIQUE: Precontrast 4.5 mm thick angled axial sections acquired from the foramen magnum to the vertex. Afte r the administration of intravenous contrast, 1 mm thick sections acquired through the [place] of [place] is. Postcontrast 4.5 mm thick sections then re-acquired from the foramen magnum to the vertex. 3-di mensional ajzjkaq-udrmmpxti-ltptpqlxwl (MIP) and/or volume rendering reformats were acquired of the c entral intracranial vasculature. For radiation dose reduction, the following was used: automated ex posure control, adjustment of mA and/or kV according to patient size. COMPARISON: CT head and CTA neck 12/08/2022, MRA head and MRI brain 07/12/2022, FINDINGS: Image quality: Excellent. Anterior circulation: Intracranial internal carotid arteries are normal in size and flow. The flow within the paired anterior cerebral arteries is normal and symmetric. The flow within the middle cer ebral arteries is normal and symmetric. The anterior communicating artery is seen. No aneurysms are seen. Posterior circulation: Slight left vertebral artery dominance. Visualized portions of the vertebral arteries demonstrate normal caliber, and join to form a normal appearing basilar artery. Flow within the posterior cerebral arteries is normal and symmetric. No aneurysms are seen. CSF spaces: Ventricles are normal in size and shape. Basal cisterns are patent. No extra-axial flu id collections. Brain: No midline shift. No intracranial bleeds or masses. Verdugo-white matter interface appears int act. Skull and face: Calvarium and facial bones appear intact, without suspicious lesions. Sinuses: Visualized sinuses and mastoids are clear. IMPRESSION: No areas of hemodynamically significant stenosis, vascular occlusion or aneurysmal dilation within th e anterior or posterior circulation. Reviewed by: Jenna Olson MD on 12/08/2022 2:10 PM PDT Approved by: Jenna Olson MD on 12/08/2022 2:10 PM PDT Station ID: [id number]
--- NOTE | 2022-12-08 14:12 | CT Report ---
PROCEDURE: ANGIO NECK W INDICATIONS: L sided facial droop, L neck pain CONTRAST: 80ml Omnipaque 300 TECHNIQUE: After the administration of intravenous contrast, 1.5 mm axial sections acquired from the aortic arch to the [place] of [place]. Coronal 3-D maximum intensity projection (MIP) and/or volume rendering ref ormats were then performed. For radiation dose reduction, the following was used: automated exposur e control, adjustment of mA and/or kV according to patient size. COMPARISON: CT head and CTA head 12/08/2022, MRA head and MRI brain 07/12/2022, FINDINGS: Image quality: Excellent. Carotid system: The great vessels demonstrate a conventional anatomy as they arise from the aortic a rch. The origins of the common carotid arteries appear patent. The common carotid arteries demonstr ate normal calibers and courses. The bifurcation regions appear normal bilaterally. The internal ca rotid arteries demonstrate normal caliber and course. Posterior circulation: The origins of the vertebral arteries appear patent. The more superior porti ons of the vertebral arteries demonstrate normal course and caliber. They join to form a normal appe aring basilar artery. Soft tissues: Visualized neck soft tissues demonstrate no suspicious abnormalities. The thyroid dem onstrates bilateral low-attenuation foci. No priors are available for comparison. Bones: No suspicious bony lesions. Visualized cervical spine appears normally aligned. IMPRESSION: There are no areas of hemodynamically significant stenosis, vascular occlusion or aneurysmal dilation within the neck vasculature. Bilateral low-attenuation thyroid foci indeterminate. As clinically indicated, further evaluation wit h thyroid ultrasound may be obtained on a nonemergent basis. The estimate of stenosis included in the report of the imaging study was calculated using the NASCET method CLINICAL RECOMMENDATION STATEMENTS: In patients <35 years with an ITN detected on CT, MRI, or extrathyroidal ultrasound, the Committee re commends further evaluation with dedicated thyroid ultrasound if the nodule is "e1 cm and has no susp icious imaging features, and if the patient has normal life expectancy. In patients "e35 years with an ITN detected on CT, MRI, or extrathyroidal ultrasound, the Committee r ecommends further evaluation with dedicated thyroid ultrasound if the nodule is "e1.5 cm and has no s uspicious imaging features, and if the patient has normal life expectancy. (ACR, 2014) Reviewed by: Jenna Olson MD on 12/08/2022 2:11 PM PDT Approved by: Jenna Olson MD on 12/08/2022 2:11 PM PDT Station ID: [id number]
[2022-12-08] MEDS ORDERED: iohexoL-300 100 ML VIAL ONE (14:41)
[2022-12-08] MEDS: iohexoL-300 100 ML VIAL IVP ONE (16:04)
[2022-12-08] MEDS: hydrALAZINE INJ 20 MG/ML VIAL IVP STA (16:20)
[2022-12-08 16:44] VITALS: BP 154/83
== END 2022-12-08 16:48 | disposition left against medical advice (07) ==
LOC: EDUNIT# → ED 12:59
DX: G45.9 Transient cerebral ischemic attack, unspecified (principal); I16.0 Hypertensive urgency; F17.200 Nicotine dependence, unspecified, uncomplicated; Z53.29 Procedure and treatment not carried out because of patient's decision for other reasons; Z79.82 Long term (current) use of aspirin
CPT/HCPCS: 36415; 70450; 70496; 70498; 71045; 80053; 83690; 85025; 85610; 93005; 99284; A9270; Q9967

== ENCOUNTER 2023-02-06 12:23 | Outpatient (CLI) | payer BC ==
[2023-02-06 14:47] LABS: BASOPHILS # (AUTO) 0.1 10^3/uL (0.0-0.1); BASOPHILS % (AUTO) 0.7 %; EOSINOPHILS # (AUTO) 0.2 10^3/uL (0.0-0.7); EOSINOPHILS % (AUTO) 2.2 %; HCT - HEMATOCRIT 51.4 % (37.0-47.0); HGB - HEMOGLOBIN 16.7 g/dL (12.0-16.0); LYMPHOCYTES # (AUTO) 2.9 10^3/uL (1.5-3.5); LYMPHOCYTES % (AUTO) 26.9 %; MEAN CORPUSCULAR HEMOGLOBIN 29.9 pg (27.0-31.0); MEAN CORPUSCULAR HGB CONC 32.5 g/dL (32.0-36.0); MEAN CORPUSCULAR VOLUME 91.9 fL (81.0-99.0); MEAN PLATELET VOLUME 12.9 fL (7.9-10.8); MONOCYTES # (AUTO) 0.7 10^3/uL (0.0-1.0); NEUTROPHILS # (AUTO) 6.9 10^3/uL (1.5-6.6); NEUTROPHILS % (AUTO) 63.7 %; PLT - PLATELET COUNT 242 10^3/uL (130-450); RED BLOOD COUNT 5.59 10^6/uL (4.20-5.40); RED CELL DISTRIBUTION WIDTH 13.2 % (12.0-15.0); WHITE BLOOD COUNT 10.8 x10^3/uL (4.8-10.8)
== END 2023-02-06 12:24 | disposition home or self-care (01) ==
LOC: LAB.S 12:23
PROVIDERS: ATTEND Internal Medicine
DX: R79.89 Other specified abnormal findings of blood chemistry (principal)
CPT/HCPCS: 36415; 82607; 82728; 83540; 84466; 85025

== ENCOUNTER 2023-05-06 08:00 | Outpatient (CLI) | payer SELFPAY | END 2023-05-06 23:59 | disposition home or self-care (01) | LOC: LAB 08:00 | PROVIDERS: ATTEND Physician Assistant Medical | DX: N39.0 Urinary tract infection, site not specified (principal) | CPT/HCPCS: 87086; 87181 ==

== ENCOUNTER 2023-05-19 12:09 | Emergency (ER) | payer SELFPAY ==
[2023-05-19 12:45] LABS: BILIRUBIN,URINE NEGATIVE (NEGATIVE); GLUCOSE, URINE (UA) NEGATIVE (NEGATIVE); KETONES,URINE (UA) NEGATIVE (NEGATIVE); LEUKOCYTE ESTERASE, URINE NEGATIVE (NEGATIVE); NITRITE,URINE NEGATIVE (NEGATIVE); OCCULT BLOOD,URINE NEGATIVE (NEGATIVE); PROTEIN,URINE NEGATIVE (NEGATIVE); UROBILINOGEN,URINE 0.2 (NORMAL) E.U./dL (NORMAL)
[2023-05-19 12:48] LABS: CLARITY,URINE CLEAR (CLEAR)
[2023-05-19 12:51] LABS: BASOPHILS # (AUTO) 0.1 10^3/uL (0.0-0.1); BASOPHILS % (AUTO) 0.5 %; EOSINOPHILS # (AUTO) 0.1 10^3/uL (0.0-0.7); EOSINOPHILS % (AUTO) 0.7 %; HCT - HEMATOCRIT 51.9 % (37.0-47.0); HGB - HEMOGLOBIN 17.1 g/dL (12.0-16.0); LYMPHOCYTES # (AUTO) 2.5 10^3/uL (1.5-3.5); LYMPHOCYTES % (AUTO) 20.4 %; MEAN CORPUSCULAR HGB CONC 32.9 g/dL (32.0-36.0); MEAN CORPUSCULAR VOLUME 88.1 fL (81.0-99.0); MEAN PLATELET VOLUME 11.4 fL (7.9-10.8); MONOCYTES # (AUTO) 0.7 10^3/uL (0.0-1.0); MONOCYTES % (AUTO) 5.2 %; NEUTROPHILS # (AUTO) 9.1 10^3/uL (1.5-6.6); NEUTROPHILS % (AUTO) 72.9 %; PLT - PLATELET COUNT 254 10^3/uL (130-450); RED BLOOD COUNT 5.89 10^6/uL (4.20-5.40); RED CELL DISTRIBUTION WIDTH 13.1 % (12.0-15.0); WHITE BLOOD COUNT 12.5 x10^3/uL (4.8-10.8)
[2023-05-19 13:04] LABS: ALBUMIN 4.4 g/dL (3.2-5.5); ALBUMIN/GLOBULIN RATIO 1.6 (1.0-2.2); BILIRUBIN,TOTAL 0.5 mg/dL (0.2-1.0); CALCIUM 9.7 mg/dL (8.5-10.3); CREATININE 0.7 mg/dL (0.6-1.3); POTASSIUM 3.8 mmol/L (3.5-4.5); TOTAL PROTEIN 7.2 g/dL (6.4-8.9)
--- NOTE | 2023-05-19 14:31 | ED Physician Documentation ---
History of Present Illness - Stated complaint Stated Complaint: ABD PX, LOWER BACK PX - Chief complaint Chief Complaint: Abd Pain - History obtained from History obtained from: Patient - Additonal information Additional information: Patient is a 62-year-old female who presents to the emergency department for right flank pain x 3 weeks. She has a history of rectal cancer. She states that she had a resection and a reanastomosis. She states that over the past 3 weeks she has developed right flank pain. Thought it might be a kidney infection but did not improve with antibiotics. She thought it may be a kidney stone, has not had any imaging performed. She now is concerned about potential bowel obstruction, decreased appetite but no vomiting. She also feels like she may be constipated. Review of Systems Constitutional: denies: Fever, Chills Nose: denies: Rhinorrhea / runny nose, Congestion GI: reports: Nausea. denies: Vomiting, Constipation, Diarrhea, Hematemesis, Bloody / black stool : denies: Dysuria, Frequency, Hesitancy Skin: denies: Rash Musculoskeletal: denies: Neck pain, Back pain Neurologic: denies: Headache PD PAST MEDICAL HISTORY - Past Medical History Past Medical History: Yes Cardiovascular: Hypertension Respiratory: None Neuro: CVA Endocrine/Autoimmune: None GI: Diverticulitis SIZING SPONGER: None : None HEENT: None Psych: Anxiety, Panic attacks Musculoskeletal: None Other Past Medical History: rectal cancer - Past Surgical History Past Surgical History: Yes - Present Medications Home Medications: Ambulatory Orders Medication Instructions Recorded Confirmed Losartan Potassium 100 mg PO DAILY 05/19/23 05/19/23 amLODIPine [Norvasc] 5 mg PO DAILY PM 05/19/23 05/19/23 - Allergies Allergies/Adverse Reactions: Allergies Allergy/AdvReac Type Severity Reaction Status Date / Time codeine Allergy Respiratory Verified 05/19/23 12:15 erythromycin base Allergy Headache Verified 05/19/23 12:15 epinephrine AdvReac Anxiety Verified 05/19/23 12:15 - Social History Does the pt smoke?: Yes Smoking Status: Current every day smoker Does the pt drink ETOH?: No Does the pt have substance abuse?: No - Immunizations Immunizations are current?: Yes PD ED PE NORMAL - Vitals Vital signs reviewed: Yes - General General: Alert and oriented X 3, No acute distress - HEENT HEENT: PERRL, Moist mucous membranes - Neck Neck: Supple, no meningeal sign - Cardiac Cardiac: RRR, Strong equal pulses - Respiratory Respiratory: No respiratory distress, Clear bilaterally - Abdomen Abdomen: Soft, Non tender, Non distended - Back Back: No CVA TTP, No spinal TTP - Derm Derm: Warm and dry - Extremities Extremities: No edema, No calf tenderness / cord - Neuro Neuro: Alert and oriented X 3 - Psych Psych: Normal mood, Normal affect Results - Vitals Vitals: Vital Signs - 24 hr 05/19/23 05/19/23 05/19/23 12:16 14:13 14:49 Temperature 36.6 C Heart Rate 83 Respiratory 20 19 18 Rate Blood Pressure 181/119 H O2 Saturation 97 05/19/23 05/19/23 16:31 16:56 Temperature 36.7 C Heart Rate 76 Respiratory 17 18 Rate Blood Pressure 135/80 H O2 Saturation 96 Oxygen O2 Source Room air - Labs Labs: Laboratory Tests 05/19/23 05/19/23 05/19/23 12:35 12:47 12:47 WBC 12.5 H RBC 5.89 H Hgb 17.1 H Hct 51.9 H MCV 88.1 MCH 29.0 MCHC 32.9 RDW 13.1 Plt Count 254 MPV 11.4 H Neut # (Auto) 9.1 H Lymph # (Auto) 2.5 [place] # (Auto) 0.7 Eos # (Auto) 0.1 Baso # (Auto) 0.1 Absolute Nucleated RBC 0.00 Nucleated RBC % 0.0 Sodium 140 Potassium 3.8 Chloride 106 Carbon Dioxide 26 Anion Gap 8.0 BUN 7 Creatinine 0.7 Estimated GFR (MDRD) 85 L Glucose 112 H Calcium 9.7 Total Bilirubin 0.5 AST 17 ALT 17 Alkaline Phosphatase 73 Total Protein 7.2 Albumin 4.4 Globulin 2.8 Albumin/Globulin Ratio 1.6 Lipase 20 Urine Color LT. YELLOW Urine Clarity CLEAR Urine pH 6.0 Ur Specific [place] 1.010 Urine Protein NEGATIVE Urine Glucose (UA) NEGATIVE Urine Ketones NEGATIVE Urine Occult Blood NEGATIVE Urine Nitrite NEGATIVE Urine Bilirubin NEGATIVE Urine Urobilinogen 0.2 (NORMAL) Ur Leukocyte Esterase NEGATIVE Ur Microscopic Review NOT INDICATED Urine Culture Comments NOT INDICATED - Rads (name of study) CT abd/pelvis Relevant Findings:: Final report received, See rad report PD Medical Decision Making - ED course Complexity details: reviewed results, re-evaluated patient, considered differential, d/w patient ED course: 62-year-old female with right flank pain. Unclear etiology. She has chronic polycythemia. Her white blood cell count is usually mildly elevated. No significant acute lab abnormalities. No urinalysis findings. No acute findings on CT scan that would explain her symptoms. Patient declines any pain medication here besides toradol or for home. Abdomen is soft, nontender nondistended on serial examination. No evidence of masses, tumors, abscess, infection. We will have her follow-up with her PCP for further care. Patient is very well-appearing, nontoxic. Afebrile. Tolerating p.o. without difficulty. Patient counseled regarding signs and symptoms for which I believe and urgent re-evaluation would be necessary. Patient with good understanding of and agreement to plan and is comfortable going home at this time This document was made in part using voice recognition software. While efforts are made to proofread this document, sound alike and grammatical errors may occur. Departure - Departure Disposition: 01 Home, Self Care Clinical Impression: Flank pain Condition: Good Instructions: ED Flank Pain Uncertain Cause Follow-Up: Alysha Varghese MD [Primary Care Provider] - Within 1 week Comments: You do have a elevated hemoglobin and hematocrit, but this is chronic for you in your normal range. You also have a mildly elevated white blood cell count which is also chronic. Your CT scan does not show any acute abnormalities. Your urinalysis does not show any signs of infection. You do have a small adrenal nodule that has been stable for the past 2 years. Your doctor may want to perform an endoscopy, capsule endoscopy or colonoscopy for further evaluation of your symptoms. Please return if you worsen. EXAM: [id number] CT/ABPEW ([id number]) PROCEDURE: ABDOMEN/PELVIS W INDICATIONS: diffuse abd pain, h/o rectal cancer CONTRAST: 100ml omni 300 TECHNIQUE: After the administration of oral and intravenous contrast, 5 mm thick sections acquired from the diaphragms to the symphysis. 5 mm thick coronal and sagittal reformats were acquired. For radiation dose reduction, the following was used: automated exposure control, adjustment of mA and/or kV according to patient size. COMPARISON: CT 06/22/2021 FINDINGS: Image quality: Excellent. Lung bases and heart: Unremarkable. Liver: No solid mass. Hepatic steatosis. Gallbladder and biliary tree: No radiopaque stones or wall thickening. No biliary dilation. Spleen: No splenomegaly. Pancreas: No pancreatic ductal dilation. Adrenals: Stable left adrenal nodule measuring 2.1 cm. Kidneys and ureters: No hydronephrosis. No renal cystic lesion which requires follow up. No solid mass. Nonobstructing left-sided nephrolithiasis in the renal pelvis measuring 0.7 cm ([address]). Bowel and peritoneum: No bowel distension. No pathologic free fluid. Diverticulosis without evidence of diverticulitis. Lymph nodes: No central or retroperitoneal adenopathy. Vessels: No infrarenal aortic aneurysm. PELVIS Reproductive organs: Unremarkable. Bladder: No abnormal wall thickening, accounting for underdistension. Pelvic lymph nodes: No pelvic adenopathy by size criteria. Bones: No aggressive osseous abnormality. Other: No significant ventral or inguinal hernia. IMPRESSION: No acute abnormality. Colonic diverticulosis without evidence of diverticulitis. Stable left adrenal nodule measuring 2.1 cm, presumably benign given stability since 06/22/2021. Hepatic steatosis. Forms: PCP List Discharge Date/Time: 05/19/23 16:58
[2023-05-19] MEDS ORDERED: iohexoL-300 100 ML VIAL IVP ONE (15:20)
[2023-05-19] MEDS ORDERED: DIATRIZOATE MEGLU/DIATRIZO SOD 30 ML BOTTLE PO ONE (15:21)
[2023-05-19] MEDS ORDERED: KETOROLAC 15 MG/ML VIAL IVP STA (16:06)
--- NOTE | 2023-05-19 16:16 | CT Report ---
PROCEDURE: ABDOMEN/PELVIS W INDICATIONS: diffuse abd pain, h/o rectal cancer CONTRAST: 100ml omni 300 TECHNIQUE: After the administration of oral and intravenous contrast, 5 mm thick sections acquired from the diap hragms to the symphysis. 5 mm thick coronal and sagittal reformats were acquired. For radiation dos e reduction, the following was used: automated exposure control, adjustment of mA and/or kV accordin g to patient size. COMPARISON: CT 06/22/2021 FINDINGS: Image quality: Excellent. Lung bases and heart: Unremarkable. Liver: No solid mass. Hepatic steatosis. Gallbladder and biliary tree: No radiopaque stones or wall thickening. No biliary dilation. Spleen: No splenomegaly. Pancreas: No pancreatic ductal dilation. Adrenals: Stable left adrenal nodule measuring 2.1 cm. Kidneys and ureters: No hydronephrosis. No renal cystic lesion which requires follow up. No solid mas s. Nonobstructing left-sided nephrolithiasis in the renal pelvis measuring 0.7 cm ([address] t). Bowel and peritoneum: No bowel distension. No pathologic free fluid. Diverticulosis without evidence of diverticulitis. Lymph nodes: No central or retroperitoneal adenopathy. Vessels: No infrarenal aortic aneurysm. PELVIS Reproductive organs: Unremarkable. Bladder: No abnormal wall thickening, accounting for underdistension. Pelvic lymph nodes: No pelvic adenopathy by size criteria. Bones: No aggressive osseous abnormality. Other: No significant ventral or inguinal hernia. IMPRESSION: No acute abnormality. Colonic diverticulosis without evidence of diverticulitis. Stable left adrenal nodule measuring 2.1 cm, presumably benign given stability since 06/22/2021. Hepatic steatosis. Reviewed by: Demetrius Burroughs MD on 05/19/2023 4:15 PM PST Approved by: Demetrius Burroughs MD on 05/19/2023 4:15 PM PST Station ID: [id number]
[2023-05-19 17:04] VITALS: BP 135/80; O2SAT 96
== END 2023-05-19 16:58 | disposition home or self-care (01) ==
LOC: ED 12:09
DX: R10.9 Unspecified abdominal pain (principal); I10 Essential (primary) hypertension; D75.1 Secondary polycythemia; F17.200 Nicotine dependence, unspecified, uncomplicated; Z86.73 Personal history of transient ischemic attack (TIA), and cerebral infarction without residual deficits; Z85.048 Personal history of other malignant neoplasm of rectum, rectosigmoid junction, and anus
CPT/HCPCS: 36415; 74177; 80053; 81003; 83690; 85025; 96374; 99283; 99284; Q9967; 81001; 87086

== ENCOUNTER 2023-10-30 08:00 | Outpatient (CLI) | payer OTHER ==
--- NOTE | 2023-10-30 15:24 | XRAY Report ---
PROCEDURE: Foot 3+V LT INDICATIONS: CONTUSION OF LEFT FOOT TECHNIQUE: 3 views of the foot were obtained. COMPARISON: None FINDINGS: Bones: No fractures or dislocations. No suspicious bony lesions. Small posterior and plantar calcan eal spurs. Possible nondisplaced fracture base of fifth metatarsal only observable on the lateral Soft tissues: Soft tissue swelling without foreign body IMPRESSION: Possible nondisplaced fractures of the base of fifth metatarsal. Consider 7-10 day follow-up to asses s interval change Reviewed by: Eric Preston MD on 10/30/2023 2:23 PM JAM Approved by: Eric Preston MD on 10/30/2023 2:23 PM AKANMOL Station ID: [id number]
== END 2023-10-30 23:59 | disposition home or self-care (01) ==
LOC: DI.S 08:00
PROVIDERS: ATTEND Registered Nurse
DX: S90.32XA Contusion of left foot, initial encounter (principal)

== ENCOUNTER 2023-11-25 10:56 | Outpatient (CLI) | payer OTHER ==
--- NOTE | 2023-11-25 13:05 | CT Report ---
PROCEDURE: Lower Extremity LT WO INDICATIONS: ABN XRAY TECHNIQUE: Noncontrast 3-mm axial sections acquired from the distal tibial shaft to the talar dome, with coronal and sagittal reformats. For radiation dose reduction, the following was used: automated exposure c ontrol, adjustment of mA and/or kV according to patient size. COMPARISON: Left foot radiographs 10/30/2023 FINDINGS: Image quality: Excellent. Bones: No acute osseous fracture identified. Previously seen possible lucency at the 5th metatarsal base appears to been artifactual. Small posterior and plantar calcaneal enthesophytes. Additional oss eous projection at the plantar aspect of the calcaneus may be related to remote prior trauma or atypi clarice enthesophyte formation. No osteochondral lesion in the talar dome. Congenitally bipartite medial hallux sesamoid is noted. Minimal scattered degenerative changes at the interphalangeal joints of the toes. No significant widening of the 1st intermetatarsal distance. Soft tissues: Mild nonspecific soft tissue edema along the plantar aspect of the forefoot. Tiny inci dental intramuscular lipoma within the flexor digitorum brevis muscle measuring up to 6 mm in maximum dimension. The visualized musculature is normal in bulk. The articular cartilages, ligaments, and te ndons are not well evaluated with CT. IMPRESSION: 1.No acute osseous fracture. Previously seen suspected lucency at the 5th metatarsal base on radiogra phs from 10/30/2023 was likely artifactual. 2.Calcaneal enthesopathy. Reviewed by: Sunday Price MD on 11/25/2023 1:04 PM PDT Approved by: Sunday Price MD on 11/25/2023 1:04 PM PDT Station ID: [id number]
== END 2023-11-25 10:57 | disposition home or self-care (01) ==
LOC: DI 10:56
PROVIDERS: ATTEND Registered Nurse
DX: R93.89 Abnormal findings on diagnostic imaging of other specified body structures (principal); S90.32XA Contusion of left foot, initial encounter; M77.8 Other enthesopathies, not elsewhere classified